=== PATIENT | male | born 1945 | race Caucasian/White ===

== ENCOUNTER 2016-05-15 12:44 | Emergency (ER) | payer MEDICARE ==
[2016-05-15 13:34] VITALS: BP 109/70; PULSE 62; TEMP 98.6; BMI 26.6
[2016-05-15] MEDS ORDERED: ALBUTEROL SO4 2.5/IPRATROPIUM 0.5 INH SOL 3 ML VIAL.NEB. NEB ONE ×2 (14:38→14:48)
--- NOTE | 2016-05-15 14:42 | PDOC ---
History of Present Illness - General Chief Complaint: Chest Pain Stated Complaint: CHEST PAIN, SOB, COUGHING Time Seen by Provider: 05/15/16 14:26 History Source: Patient Exam Limitations: No Limitations - History of Present Illness Initial Comments: 05/15/16 15:08 Chief complaint: Cough, intermittent times one month History of present illness: Patient is a 71-year-old male with no significant medical history here today complaining of intermittent cough, productive times one month that has waxed and waned with no shortness of breath. Patient also reports having generalized body aches for the last 3 days with nasal congestion. He also reports chest wall pain and right lower with palpation of chest wall and when coughing. Patient denies any shortness of breath. Denies any recent travel or sick contacts. Patient denies any abdominal pain nausea vomiting or diarrhea. Patient did not have an influenza vaccine. Timing/Duration: intermittent Severity: mild Associated Symptoms: reports: chest pain (right chest wall when coughing ), cough (yellowish phelgm ), other (nasal congestion ). denies: loss of appetite Past History - Past Medical History Allergies/Adverse Reactions: Allergies Allergy/AdvReac Type Severity Reaction Status Date / Time No Known Allergies Allergy Verified 05/15/16 13:20 Home Medications: Ambulatory Orders Azithromycin [Zithromax 250mg Tablets -] 250 mg PO UTDICT #6 tab 05/15/16 Dextromethorphan Polistirex [Delsym] 60 mg PO Q12H PRN #100 ml 05/15/16 Other medical history: denies - Psycho/Social/Smoking Cessation Hx Suicidal Ideation: No Smoking History: Never smoked Review of Systems - Review of Systems Able to Perform ROS?: Yes Constitutional: No: Symptoms Reported HEENTM: Yes: Nose Congestion Respiratory: Yes: Productive cough (yellowish intermittent for 2 months ) Cardiac (ROS): Yes: Chest Pain (rt. lower anterior chest wall reproducible) ABD/GI: No: Symptoms Reported : No: Symptoms Reported Musculoskeletal: Yes: Other (generalized bodyaches) Integumentary: No: Symptoms Reported Neurological: No: Symptoms reported *Physical Exam - Vital Signs Last Vital Signs Temp Pulse Resp BP Pulse Ox 98.6 F 62 18 109/70 98 05/15/16 13:20 05/15/16 13:20 05/15/16 13:20 05/15/16 13:20 05/15/16 13:20 - Physical Exam General Appearance: Yes: Appropriately Dressed HEENT: positive: TMs Normal, Nasal Congestion. negative: Pharyngeal Erythema, Tonsillar Exudate, Tonsillar Erythema, Rhinorrhea Neck: negative: Lymphadenopathy (R), Lymphadenopathy (L) Respiratory/Chest: positive: Chest Tender (rt. anterior lower chest wall), Lungs Clear, Normal Breath Sounds. negative: Respiratory Distress Cardiovascular: positive: Regular Rhythm, Regular Rate, S1, S2 Integumentary: positive: Normal Color Neurologic: positive: Alert, Normal Response, Responsive Heart Score/ECG Review - ECG Impressions Comment:: 05/15/16 15:[address] Gonzalez normal EKG Medical Decision Making - Medical Decision Making 05/15/16 15:10 Patient is a 71-year-old male with no significant medical history here today complaining of intermittent cough, productive times one month that has waxed and waned with no shortness of breath. Patient also reports having generalized body aches for the last 3 days with nasal congestion. He also reports chest wall pain and right lower with palpation of chest wall and when coughing. Patient denies any shortness of breath. Denies any recent travel or sick contacts. Patient denies any abdominal pain nausea vomiting or diarrhea. Patient did not have an influenza vaccine. Productive cough rule out infiltrate Plan: EKG normal reviewed by Dr. Lisa Gomez now X-ray chest PA/lateral no infiltrate noted 05/15/16 15:52 will treat with azithromycin 250 mg 2 tabs today than one tab daily for the following 4 days Delsym 10 ml q 12 hr prn cough for 5 days 05/15/16 15:54 05/17/16 22:42 *DC/Admit/Observation/Transfer Diagnosis at time of Disposition: Bronchitis - Discharge Dispostion Disposition: HOME Condition at time of disposition: Stable - Prescriptions Prescriptions: Dextromethorphan Polistirex [Delsym] 60 mg PO Q12H PRN #100 ml PRN Reason: Cough Azithromycin [Zithromax 250mg Tablets -] 250 mg PO UTDICT #6 tab - Referrals Referrals: Rafat Campos MD [Primary Care Provider] - - Patient Instructions Additional Instructions: Follow-up with your primary care provider within the next few days Return to emergency room if any difficulty breathing or worsening symptoms Drink a lot of fluids and rest Patient voiced understanding of discharge instructions and all questions were answered
--- NOTE | 2016-05-17 15:08 | EKG ---
Test Reason : Blood Pressure : / mmHG Vent. Rate : 062 BPM Atrial Rate : 062 BPM P-R Int : 170 ms QRS Dur : 096 ms QT Int : 408 ms P-R-T Axes : 057 -18 049 degrees QTc Int : 414 ms NORMAL SINUS RHYTHM NORMAL ECG NO PREVIOUS ECGS AVAILABLE Confirmed by JEAN-CLAUDE LEONARD MD ([id number]) on 05/17/2016 3:08:31 PM Referred By: Confirmed By:JEAN-CLAUDE LEONARD MD
== END 2016-05-15 16:11 | disposition home or self-care (01) ==
LOC: JERFT 12:44
PROC: 3E0F7GC Introduction of Other Therapeutic Substance into Respiratory Tract, Via Natural or Artificial Opening (ICD-10-PCS; principal; 2016-05-15)
DX: J40 Bronchitis, not specified as acute or chronic (principal)
CPT/HCPCS: 71020-TC; 93005; 93010; 94640; 99281-25